=== PATIENT | male | born 1980 | race Caucasian/White ===

== ENCOUNTER 2020-04-27 10:20 | Inpatient (IN) | payer MEDICARE, MEDICAID, SELFPAY ==
[2020-04-27] VITALS (30 sets, daily range): BP systolic 63–127; BP diastolic 36–84; PULSE 77–127; RESP 14–30; TEMP 35.8–37.7; O2SAT 92–100; BMI 27.3
--- NOTE | ~2020-04-27 | CT_ITS ---
EXAMINATION: CT chest abdomen pelvis wo con DATE: 04/27/2020 11:29 INDICATION: Fever. Flank and chest pain. TECHNIQUE: Computed tomography (CT) of the chest, abdomen, and pelvis was performed without intraveno us contrast. Automated exposure control and iterative reconstruction technique were employed. The dos e-length product was 1640.75 mGy-cm. COMPARISON: None FINDINGS: CHEST CT: The lungs demonstrate mild dependent atelectasis. There is a trace left pleural effusion. The heart s ize is normal. No pericardial effusion. ABDOMEN/PELVIS CT: There is diffuse hepatic steatosis. The gallbladder, spleen, pancreas, adrenal glands, and right kidn ey are normal. There are at least 7 stones in left kidney measuring up to 9 mm. There is mild left hy dronephrosis. There is a 12 mm stone in proximal left ureter. There is gas in the bladder lumen that may be from recent instrumentation. There is diverticulosis of the colon without evidence of divertic ulitis. There are no dilated loops of bowel. The appendix is normal. There are no pathologically enla rged lymph nodes. There is no free intraperitoneal fluid. There are bilateral inguinal hernias contai marci fat. There is ankylosis of the hip joints and sacroiliac joints. There are changes of posterior fusion procedure of the spine. IMPRESSION: 1. 12 mm stone in proximal left ureter with mild hydronephrosis. 2. Nonobstructing left kidney stones. Reviewed, dictated and finalized at location A.
--- NOTE | ~2020-04-27 | US_ITS ---
EXAMINATION: US renal BI DATE: 04/27/2020 17:39 INDICATION: Acute renal failure TECHNIQUE: Multiple ultrasound grayscale images of the kidneys were obtained. COMPARISON: CT dated 04/27/2020 FINDINGS: The right kidney measures 13.3 x 4.5 x 6.4 cm. The left kidney measures 13.8 x 5.8 x 7.1 cm. The kidn eys demonstrate normal echogenicity. 2.7 cm cyst at the inferior left kidney. There is no hydronephro sis in either kidney. Linear echogenic structure at the upper pole of the left kidney likely represen ting a recently placed ureteral stent. No stones identified. Punctate echogenic foci with dirty shado wing consistent with previously noted intraluminal gas in the bladder which surrounds a Todd cathete r. IMPRESSION: 1. 2.7 cm left renal cyst. Otherwise normal kidneys without hydronephrosis. 2. Todd catheter and gas within the bladder and likely stent at the upper pole of the left kidney. Reviewed, dictated and finalized at location A.
--- NOTE | ~2020-04-27 | XR_ITS ---
EXAMINATION: XR retrograde pyelo w/stent LT DATE: 04/27/2020 13:57 INDICATION: Obstructing left ureteral stone with fever and flank pain. TECHNIQUE: 10 fluoroscopic images of the abdomen and pelvis were obtained during procedure performed by Dr. Diallo. Radiologist was not present for the imaging or procedure. The amount of fluoroscopy time used during this procedure was 0.3 minutes. COMPARISON: CT dated 04/27/2020 FINDINGS: Images demonstrate a catheter advanced into the left ureter and retrograde contrast injection opacify ing the mildly dilated left renal collecting system. A filling defect is seen at the lower pole calyx likely representing the prior obstructing stone. Subsequent images demonstrate a wire advanced throu gh the catheter into the left renal collecting system. Final images demonstrate the tip of a internal ureteral stent coiled in the left renal pelvis. Incidentally noted thoracolumbar posterior spinal fu aaron with partially visualized vertical floyd and pedicle screw fixation. There is ankylosis across the lumbar spinous processes suggesting ankylosing spondylitis. IMPRESSION: 1. Fluoroscopy utilized during retrograde pyelogram and internal ureteral stent placement. 2. Previously noted obstructing stone at the proximal left ureter likely refluxed into the lower pole calyx of the left kidney. Correlate with procedure note. Reviewed, dictated and finalized at location A. IMPRESSION: 1. Fluoroscopy utilized during retrograde pyelogram and internal ureteral stent placement. 2. Previously noted obstructing stone at the proximal left ureter likely reflux ed into the lower pole calyx of the left kidney. Correlate with procedure note.
--- NOTE | ~2020-04-27 | CT_ITS ---
EXAMINATION: CT abdomen pelvis wo con DATE: 04/29/2020 13:06 INDICATION: Obstructing ureteral stone. TECHNIQUE: Computed tomography (CT) of the abdomen and pelvis was performed without intravenous contr ast. Automated exposure control and iterative reconstruction technique were employed. The dose-length product was 1364.64 mGy-cm. COMPARISON: CT abdomen and pelvis 04/27/2020 FINDINGS: The visualized portions of the lung bases demonstrate mild dependent atelectasis. There are small pleural effusions. The heart size is normal. No pericardial effusion. There is diffuse hepatic steatosis. The gallbladder is normal in size. There is wall thickening of the gallbladder. The splee n, pancreas, adrenal glands, and right kidney are normal. There are multiple stones in left kidney in clusters with the largest stone or cluster of stones measuring 14 mm. There is an 8 mm stone versus pair of stones in proximal left ureter. There is a left internal ureteral stent in expected position. There is a left inguinal hernia containing fat. There is diverticulosis of the colon without evidenc e of diverticulitis. There are no dilated loops of bowel. The appendix is normal. There is mild left para-aortic lymphadenopathy, likely reactive. There is no free intraperitoneal fluid. There is ankylo sis of the hip joints. There are changes of posterior fusion procedure in thoracic and lumbar spine w ith instrumentation. IMPRESSION: 1. Stones in the left kidney and proximal left ureter with left internal ureteral stent in expected p osition. 2. Small pleural effusions. 3. Wall thickening of the gallbladder, which may be seen with interstitial edema, chronic liver disea se, or chronic cholecystitis. 4. Mild left para-aortic lymphadenopathy, likely reactive. Reviewed, dictated and finalized at location A. IMPRESSION: 1. Stones in the left kidney and proximal left ureter with left internal ureter al stent in expected position. 2. Small pleural effusions. 3. Wall thickening of the gallbladder, which may be seen with interstitial chasity a, chronic liver disease, or chronic cholecystitis. 4. Mild left para-aortic lymphadenopathy, likely reactive.
--- NOTE | ~2020-04-27 | XR_ITS ---
EXAMINATION: XR abdomen/kub 1V DATE: 04/29/2020 10:24 INDICATION: Proximal right ureteral stone. TECHNIQUE: A supine view of the abdomen on 2 radiographs was obtained. COMPARISON: CT abdomen and pelvis 04/27/2020 FINDINGS: There are no dilated loops of bowel. There is a left internal ureteral stent in expected po sition. There is an 11 x 4 mm stone in proximal left ureter. There are phleboliths in left pelvis. Th ere are changes of posterior fusion procedure in the spine. IMPRESSION: 1. 11 x 4 mm stone in proximal left ureter with left internal ureteral stent in expected position. Reviewed, dictated and finalized at location A.
--- NOTE | 2020-04-27 10:17 | ED.MALEGU ---
HPI - Male Genitourinary General Chief complaint: Urogenital-Male Stated complaint: Fever History of Present Illness HPI Narrative: 40 year old w/ h/o DM, htn, paraplegia, neurogenic bladder presents to the ED for fever. He has reportedly not been feeling well for a few days. He has had fevers up to 101. He has also had decreased PO intake, decreased urine, and pain in the left side of the chest and abdomen. History limited by patient cooperation. Most history obtained from his home health provider. Related Data Home Medications Medication Instructions Recorded Confirmed Humulin 70/30 U-100 KwikPen 04/27/20 atorvastatin 40 mg PO DAILY 04/27/20 ergocalciferol (vitamin D2) 50,000 mcg PO WEEKLY 04/27/20 [Vitamin D2] fenofibrate micronized 200 mg PO DAILY 04/27/20 ibuprofen 800 mg PO Q6H 04/27/20 icosapent ethyl [Vascepa] 2 g PO BID 04/27/20 lorazepam 0.5 mg PO TID PRN 04/27/20 metformin 500 mg PO BID 04/27/20 omeprazole 20 mg PO DAILY 04/27/20 tamsulosin 0.4 mg PO HS 04/27/20 Allergies Allergy/AdvReac Type Severity Reaction Status Date / Time No Known Allergies Allergy Mild Verified 10/20/07 16:04 Review of Systems Review of Systems: Narrative: ROS limited by patient cooperation Constitutional: Constitutional: Reports fever(s) Cardiovascular: Cardiovascular: Reports chest pain Respiratory: Respiratory: Denies cough, Denies dyspnea and Denies wheezing Gastrointestinal: Gastrointestinal: Reports abdominal pain Genitourinary: Genitourinary: Reports oliguria Musculoskeletal: Musculoskeletal: Reports back pain Neurologic: Denies confusion REPLACED BY [facility] Past Medical History Medical History Anxiety Diabetes DM2 (diabetes mellitus, type 2) Hyperlipidemia Immobility syndrome (paraplegic) Tobacco abuse Surgical History Surgical History Previous back surgery Family History Family History Mother Kidney stone multiple lithotripsies Father Diabetes mellitus Heart disease AICD (automatic cardioverter/defibrillator) present Social History Social History Social History: the patient lives in apartment complex. He has Lexy as a caregiver. She is a Sunday through Sunday. She is the durable power deputy county attorney for healthcare. He does not have any children and has not been . He does smoke about a pack to pack and half a cigarettes a day. Occasional alcohol and uses marijuana. Smoking status: Current every day smoker Alcohol intake: current Substance use: current Substance use type: marijuana Living arrangements: alone Occupation/Education: other Additional gender identity comments: He is disabled Sexual Orientation (if Verbalized by the Patient): Straight or Heterosexual Exam Const: General: no acute distress, alert and ill appearing acutely and chronically HENMT: Head: normal to inspection Chest: Chest palpation & inspection: no tenderness Resp: Effort & Inspection: normal respiratory effort Auscultation: clear to auscultation bilaterally Cardio: Rate: tachycardic Rhythm: regular rhythm GI: GI Palp: Yes Soft to palpation, No Tenderness to palpation present (GI) and No Guarding due to palpation present (GI) : General: Yes CVA tenderness on the left Skin: General skin exam: normal color Neuro: General: patient oriented x3 Speech: normal speech Other: 5/5 strength in BUE Course Vital Signs Vital signs: Vital Signs Temperature 35.8 C L 04/27/20 10:18 Pulse Rate 115 H 04/27/20 10:18 Respiratory Rate 18 04/27/20 10:18 Blood Pressure 100/51 L 04/27/20 10:18 Pulse Oximetry 95 04/27/20 10:18 Temperature 37.0 C 04/27/20 14:05 Pulse Rate 125 H 04/27/20 14:45 Respiratory Rate 16 04/27/20 14:45 Blo
[2020-04-27 10:48] LABS: Basophils Absolute Auto 0.1 K/mm3 (0.0-0.1); Basophils Percent Auto 0.4 % (0.2-1.2); Eosinophils Percent Auto 0.1 % (0-4.4); Hematocrit 51.2 % (42.0-52.0); Hemoglobin 17.5 g/dL (14.0-18.0); Immature Granulocyte Absolute 0.27 K/mm3 (0.00-0.031); Immature Granulocyte Percent A 1.1 % (0-0.5); Lymphocytes Absolute Auto 1.09 K/mm3 (0.9-3.2); Lymphocytes Percent Auto 4.4 % (18.3-44.2); Mean Corpuscular HGB Conc 34.2 g/dl (32-36); Mean Corpuscular Hemoglobin 29.5 pg (26-34); Mean Corpuscular Volume 86.3 fl (80-100); Mean Platelet Volume 9.3 fl (7.4-10.4); Monocytes Absolute Auto 2.2 K/mm3 (0.1-0.6); Monocytes Percent Auto 8.7 % (2.6-8.5); Neutrophils Absolute Auto 21.2 K/mm3 (1.3-6.7); Neutrophils Percent Auto 85.3 % (45.5-73.1); Platelet Count Result 229 k/mm3 (150-375); Red Blood Count 5.93 M/mm3 (4.6-6.20); Red Cell Distribution Width 13.7 % (11.5-14.5); White Blood Count 24.9 K/mm3 (4.5-10.0)
--- NOTE | 2020-04-27 10:55 | PC.NURSE ---
PER QIANA CARTER PT DOES NOT NECESSARILY NEED A CATH TO PROVIDE UA, PT GIVEN URINAL AT THIS TIME, INFORMED OF NEED FOR URINE, PT STATES HE CANNOT GO, I INFORMED PT THAT THE OTHER OPTION IS A STRAIGHT CATH TO WHICH PT STATES YEAH, YOU CAN GO FUCK YOURSELF. TO WHICH I TOLD THE PT THAT THAT RESPONSE WAS NOT AN APPROPRIATE WAY TO ADDRESS STAFF. PT AID AT BEDSIDE LAUGHING AND STATES THAT PT JUST DOESN'T FEEL WELL.
[2020-04-27 10:57] LABS: INR 1.2; Prothrombin Time 14.8 Seconds (11.1-14.7)
[2020-04-27 10:59] LABS: Lactic Acid Reflex 2.3 mmol/L (0.7-2.1)
[2020-04-27 11:08] LABS: Alanine Aminotransferase 27 U/L (4-50); Albumin Level 4.5 g/dL (3.5-5.1); Alkaline Phosphatase 66 U/L (38-126); Anion Gap 19 mmol/L (8-16); Aspartate Amino Transferase 24 U/L (17-59); Bilirubin,Total 1.5 mg/dL (0.2-1.3); Blood Urea Nitrogen 37 mg/dL (9-20); Calcium 9.8 mg/dL (8.4-10.2); Carbon Dioxide 23 mmol/L (22-30); Chloride 99 mmol/L (98-107); Estimated CRCL calculation 23 ml/min; Estimated Glomerular Filt Rate 13; Glucose 151 mg/dL (75-110); Potassium 4.1 mmol/L (3.4-5.0); Sodium 141 mmol/L (137-145)
[2020-04-27] MEDS: SODIUM CHLORIDE 0.9% IV 1,000 ML 999 ML IV CONT ×2 (11:16→12:45)
--- NOTE | 2020-04-27 11:16 | PC.NURSE ---
PT TO CT ON STRETCHER BY INTERNATIONAL TAX MANAGER AT [facility] TIME.
--- NOTE | 2020-04-27 11:17 | PC.NURSE ---
PT STILL REFUSING CATH, UNABLE TO GIVE URINE PRIOR TO CT.
--- NOTE | 2020-04-27 11:36 | PC.NURSE ---
PT ASKED ABOUT STRAIGHT CATH, HE ANSWERED, ERICA NO.
[2020-04-27 11:43] LABS: CRP 36.5 mg/dL (<1.0)
--- NOTE | 2020-04-27 12:37 | PC.NURSE ---
SPOKE WITH AFSHAN IN PREOP ABOUT PT, GAVE REPORT BUT INFORMED THAT PER RN MILA, QIANA CARTER MUST SPEAK WITH PT AND INFORM HIM OF PLAN OF CARE.
--- NOTE | 2020-04-27 12:38 | PC.NURSE ---
PT STILL REFUSING CATH, TOLD QIANA CARTER AIN'T NOBODY SHOVING SHIT IN MY LEONARD.
--- NOTE | 2020-04-27 12:49 | PC.NURSE ---
RAUL AT BEDSIDE WITH RN TO DISCUSS GOING TO OR. PT REFUSING AT THIS TIME, ERP INFORMS PT OF RISKS OF NOT HAVING PROCEDURE OR BEING TREATED. PT STATES AGAIN NO ONE IS SHOVING SHIT UP MY LEONARD, I WANT TO BE ABLE TO USE IT THIS WEEK. ERP WALKS OUT OF ROOM.
--- NOTE | 2020-04-27 13:10 | PC.NURSE ---
pt still refusing cath, unable to void.
--- NOTE | 2020-04-27 13:10 | PC.NURSE ---
per ciarra arguello, special agent in charge carola, and dr. navarro, pt allowed both visitors to room.
--- NOTE | 2020-04-27 13:22 | WPDURCON ---
Assessment and Plan Assessment and plan (1) Left ureteral calculus: Code(s): N20.1 - Calculus of ureter Status: Acute Assessment and Plan: Proceed with cystoscopy left retrograde pyelogram left ureteral stent placement. Definitive treatment of stone at a later point time once acute infection resolves. Have discussed with the patient as well as his bedspring assembler. They are aware that if he is unable to have a stent placed that the next step would be a nephrostomy tube. (2) UTI (urinary tract infection): Code(s): N39.0 - Urinary tract infection, site not specified Status: Acute Assessment and Plan: Will obtain urine culture intraoperatively. Urology Consult Note HPI Date Seen: 04/27/20 Requesting Physician: Isiah Diallo MD Primary Care Provider: Juanita Travis, ODD JOB WORKER Consult Narrative Narrative: Pramod Mckeon is a 40 year old male With degenerative spine disease who is centrally bed ridden. Patient has a medical bedspring assembler as well as an anger management supporter. he had actually seen my partner Dr. Pardo recently for recurring urinary tract infections. He had refused urodynamics and any other significant intervention. He has had chills most recently. He presented to the emergency room. Evaluation in [place] [id number] scan revealing a 12 mm obstructing left proximal ureteral calculus. Patient is very non cooperative and most of the decision making is made through his medical bedspring assembler. I have recommended proceeding with cystoscopy left retrograde left stent placement with definitive treatment of the stone once he recuperates from this ongoing infection. They are aware that if a stent is unable to be placed he will need to be transferred most likely for a nephrostomy tube. Review of Systems Review of Systems: All systems reviewed & are unremarkable except as noted in HPI and below Meds Home Medications and Allergies Home Medications Medication Instructions Recorded Confirmed Type Humulin 70/30 U-100 KwikPen 04/27/20 History atorvastatin 40 mg PO DAILY 04/27/20 History ergocalciferol (vitamin D2) 50,000 mcg PO WEEKLY 04/27/20 History [Vitamin D2] fenofibrate micronized 200 mg PO DAILY 04/27/20 History ibuprofen 800 mg PO Q6H 04/27/20 History icosapent ethyl [Vascepa] 2 g PO BID 04/27/20 History lorazepam 0.5 mg PO TID PRN 04/27/20 History metformin 500 mg PO BID 04/27/20 History omeprazole 20 mg PO DAILY 04/27/20 History tamsulosin 0.4 mg PO HS 04/27/20 History Allergies Allergy/AdvReac Type Severity Reaction Status Date / Time No Known Allergies Allergy Mild Verified 10/20/07 16:04 Vital Signs Vital Signs - 24 hr 04/27/20 10:18 04/27/20 10:51 04/27/20 11:36 Temperature 35.8 C L Pulse Rate 115 H 113 H 114 H Respiratory Rate 18 16 24 H Blood Pressure 100/51 L 111/83 Pulse Oximetry 95 99 100 04/27/20 12:49 Temperature Pulse Rate 114 H Respiratory Rate 21 H Blood Pressure 108/79 Pulse Oximetry 98 Exam Resp: Effort & Inspection: normal respiratory effort Cardio: Rate: tachycardic Results Labs CBC & Chem 7: 04/27/20 10:39 04/27/20 10:39 Labs: Short CBC 04/27/20 Range/Units 10:39 WBC 24.9 H (4.5-10.0) K/mm3 Hgb 17.5 (14.0-18.0) g/dL Hct 51.2 (42.0-52.0) % Plt Count 229 (150-375) k/mm3 [facility] 04/27/20 10:39 Sodium 141 Potassium 4.1 Chloride 99 Carbon Dioxide 23 BUN 37 H Creatinine 4.80 H Glucose 151 H Calcium 9.8 Liver Function 04/27/20 Range/Units 10:39 Total Bilirubin 1.5 H (0.2-1.3) mg/dL AST 24 (17-59) U/L ALT 27 (4-50) U/L Alkaline Phosphatase 66 (38-126) U/L Albumin 4.5 (3.5-5.1) g/dL
[2020-04-27] MEDS: LACTATED RINGERS 1,000 ML 30 ML IV CONT ×3 (13:25→14:59)
--- NOTE | 2020-04-27 13:27 | WPDHPUPDATE1 ---
History and Physical Update Update Date/Time: 04/27/20 13:27 History and Physical has been reviewed, including an updated exam of the patient. There are NO changes in the patient's condition. Risks, benefits, and alternatives have been discussed and questions answered. Patient agrees to proceed with procedure.
--- NOTE | 2020-04-27 13:27 | PM.IMHP ---
H&P: HPI History of Present Illness Date/Time: 04/27/20 13:27 Chief complaint: Fever Narrative: Pramod Mckeon is a 40 year old male Who was brought to the emergency room via EMS. The patient thought that maybe he had a kidney stone in the past but was not really sure. He has caregiver Lexy was here in giving me the information. Lexy stated that they try to bring him in yesterday but he is not able to sit up appropriately and he was unable to bring his chair and he went back home. They called the ambulance today. The patient started to feel ill on Sunday and then Sunday he developed a fever. The patient recently started tamsulosin due to decreased urine output. He is still on his 1st bottle of tamsulosin. Lexy thought that maybe he had a neurogenic bladder. The patient is a functional paraplegic. Lexy explained that his knees and hips and feet became frozen and that he is not able to walk because of it. The patient had rods placed in the back in the past. The patient has a caregiver Lexy that is there Sunday through Sunday. She is acting is the power associate attorney now. The patient is diabetic and his blood sugars have been in the 100s according to October. The patient has severe anxiety. Initially he was refusing treatment. Urology has come in and talk to the patient and he is agreeable to cysto possible stent placement. The patient was found have a white count of 24.9. He would not allow the staff to straight cath him for urinalysis. His pulse rate is in the 1 teens to 120s respirations in the 20s and his blood pressure is low. He meets the criteria for sepsis. His chest abdominal pelvis CT was read as 12 mm stone in proximal left ureter with mild hydronephrosis. Nonobstructing left kidney stone. The patient was started on Rocephin. Patient appears to have rigors. Patient was concerned about having a cysto and having a Todd catheter. His creatinine was noted to be 4.8 with BUN of 37. His lactic was 2.3. Blood sugar was 151. They were not able to get a UA or urine culture due to the fact that the patient would not allow them to straight cath him. Patient is admitted to inpatient on 04/27/2020 is a date of service. Review of Systems Review of Systems: Narrative: Patient's caregiver a per was giving most of the information. All systems reviewed & are unremarkable except as noted in HPI and below Constitutional: Constitutional: Reports as per HPI and Reports no additional constitutional complaints Eyes: Eyes: Reports as per HPI and Reports no additional eye complaints ENT: Reports system reviewed and no additional complaints, except as documented and Reports Normal hearing present Cardiovascular: Cardiovascular: Reports no additional cardiovascular complaints Respiratory: Respiratory: Reports no additional respiratory complaints and Reports no additional respiratory complaints Gastrointestinal: Gastrointestinal: Reports as per HPI and Reports no additional gastrointestinal complaints Musculoskeletal: Musculoskeletal: Reports no additional musculoskeletal complaints Integumentary/Breasts: Skin/Breast: Reports system reviewed and no additional complaints, except as docu and Reports as per HPI Neurologic: Reports system reviewed and no additional complaints, except as documented, Reports as per HPI and Reports Normal hearing present Psychiatric: Psychiatric: Reports no additional psychiatric complaints and Reports as per HPI Endocrine: Endocrine: Reports no additional endocrine complaints Hematologic/Lymphatic: Hematologic/Lymphatic: Reports no additional hematologic/lymphatic complaints Allergic/Immunologic: Allergic/Immunologic: Reports no additional allergic/immunologic complaints [facility] Past Medical History Medical History (Updated 04/27/20 @ 14:00 by Birgit Calzada NP) Anxiety Diabetes DM2 (diabetes mellitus, type 2) Hyperlipidemia Immobility syndrome (paraplegic) Tobacco abuse Surgical History Surgic
--- NOTE | 2020-04-27 13:35 | WPDANESEPPF ---
Anes - Initial Pre Proc Eval Procedure: Operation Date: 04/27/20 13:00 Proposed Procedures p Cystoscopy, Left Retrograde Pyelogram, Left Stent Placement(Left) - Isiah Diallo MD Date/Time: 04/27/20 13:35 Surgeon: Isiah Diallo MD Pre Op Diagnosis: Fever Patient Data Age: 40 Gender: M Height: 6 ft Weight: 101.1 kg Last Vital Signs Temp 35.8 C L 04/27/20 10:18 Pulse 127 H 04/27/20 13:24 Resp 24 H 04/27/20 13:24 BP 122/78 04/27/20 13:24 Pulse Ox 97 04/27/20 13:24 Allergies Allergy/AdvReac Type Severity Reaction Status Date / Time No Known Allergies Allergy Mild Verified 10/20/07 16:04 Home Medications Medication Instructions Recorded Confirmed Type Humulin 70/30 U-100 KwikPen 04/27/20 History atorvastatin 40 mg PO DAILY 04/27/20 History ergocalciferol (vitamin D2) 50,000 mcg PO WEEKLY 04/27/20 History [Vitamin D2] fenofibrate micronized 200 mg PO DAILY 04/27/20 History ibuprofen 800 mg PO Q6H 04/27/20 History icosapent ethyl [Vascepa] 2 g PO BID 04/27/20 History lorazepam 0.5 mg PO TID PRN 04/27/20 History metformin 500 mg PO BID 04/27/20 History omeprazole 20 mg PO DAILY 04/27/20 History tamsulosin 0.4 mg PO HS 04/27/20 History Laboratory Tests 04/27/20 04/27/20 04/27/20 10:39 10:39 10:39 WBC 24.9 K/mm3 H K/mm3 (4.5-10.0) RBC 5.93 M/mm3 M/mm3 (4.6-6.20) Hgb 17.5 g/dL g/dL (14.0-18.0) Hct 51.2 % % (42.0-52.0) MCV 86.3 fl fl (80-100) MCH 29.5 pg pg (26-34) MCHC 34.2 g/dl g/dl (32-36) RDW 13.7 % % (11.5-14.5) Plt Count 229 k/mm3 k/mm3 (150-375) MPV 9.3 fl fl (7.4-10.4) Immature Gran % (Auto) 1.1 % H % (0-0.5) Neut % (Auto) 85.3 % H % (45.5-73.1) Lymph % (Auto) 4.4 % L % (18.3-44.2) Sampson % (Auto) 8.7 % H % (2.6-8.5) Eos % (Auto) 0.1 % % (0-4.4) Baso % (Auto) 0.4 % % (0.2-1.2) Lymph # (Auto) 1.09 K/mm3 K/mm3 (0.9-3.2) Sampson # (Auto) 2.2 K/mm3 H K/mm3 (0.1-0.6) Eos # (Auto) 0.0 K/mm3 K/mm3 (0-0.3) Baso # (Auto) 0.1 K/mm3 K/mm3 (0.0-0.1) Abs Immat Gran (auto) 0.27 K/mm3 H K/mm3 (0.00-0.031) Absolute Neuts (auto) 21.2 K/mm3 H K/mm3 (1.3-6.7) Absolute Nucleated RBC 0.0 K/mm3 K/mm3 (0.0-0.012) Nucleated RBC % 0.0 % % (0.0-0.2) PT 14.8 Seconds H Seconds (11.1-14.7) INR 1.2 APTT 32.0 SECONDS SECONDS (22.3-36.8) Sodium 141 mmol/L mmol/L (137-145) Potassium 4.1 mmol/L mmol/L (3.4-5.0) Chloride 99 mmol/L mmol/L (98-107) Carbon Dioxide 23 mmol/L mmol/L (22-30) Anion Gap 19 mmol/L H mmol/L (8-16) BUN 37 mg/dL H mg/dL (9-20) Creatinine 4.80 mg/dL H mg/dL (0.7-1.3) Estim Creat Clear Calc 23 ml/min ml/min Estimated GFR 13 L (59 - ) Glucose 151 mg/dL H mg/dL (75-110) Lactic Acid Calcium 9.8 mg/dL mg/dL (8.4-10.2) Total Bilirubin 1.5 mg/dL H mg/dL (0.2-1.3) AST 24 U/L U/L (17-59) ALT 27 U/L U/L (4-50) Alkaline Phosphatase 66 U/L U/L (38-126) C-Reactive Protein 36.5 mg/dL H mg/dL (<1.0) Total Protein 8.0 g/dL g/dL (6.3-8.2) Albumin 4.5 g/dL g/dL (3.5-5.1) 04/27/20 10:39 WBC RBC Hgb Hct MCV MCH MCHC RDW Plt Count MPV Immature Gran % (Auto) Neut % (Auto) Lymph % (Auto) Sampson % (Auto) Eos % (Auto) Baso % (Auto) Lymph # (Auto) Sampson # (Auto) Eos # (Auto) Baso # (Auto) Abs Immat Gran (auto) Absolute Neuts (auto) Absolute Nucleated RBC Nucleated RBC % PT INR APTT
[2020-04-27 13:44] LABS: Reflex Lactic Acid Yes or No Add Lactic
[2020-04-27] MEDS: LIDOCAINE HCL 2% GEL UROJET 10 ML PKG MUCOUS MEM (13:48)
--- NOTE | 2020-04-27 13:57 | P.OP_ITS ---
Procedure Note - Detailed Date of procedure: 04/27/20 Pre-op diagnosis: Fever Left ureteral obstructing stone 12 mm Post-op diagnosis: same Procedure performed: cystoscopy, left retrograde pyelogram left stent placement 6 Australian contour Description of procedure: patient is taken to the operative suite and correctly identified. Patient is extremely contracted and thus is unable to be positioned in any sort of dorsal lithotomy position. We were able to prep and drape of in a sterile fashion. Twenty-two Australian scope was inserted into the bladder. He has quite a bit of bullous edema around the ureteral orifices and trigone area. We were able to find the left ureteral orifice and placed a guidewire in. We then placed a ureteral catheter over the guidewire up to the renal pelvis. Pyelogram was performed for confirmation of stent placement. A 6 Australian contour stent was then placed with the proximal end coiled in the renal pelvis and the distal end in the bladder. There was some purulence coming from the ureteral orifice. I was never really able to visualize the stone fluoroscopically at this time. Sixteen Australian Todd was then placed in the bladder inflated with 10 cc of sterile water. Patient will be taken to the ICU postoperatively for close monitoring. He will require a follow-up CT once he is hemodynamically stable for visualization of where the stone is located. I have discussed this with his inspector materials and processes. Given a lot of his comorbid conditions and severe contractility this is a patient that may need to be better addressed over at [facility] in the future. Anesthesia: GLMA and MAC Surgeon: Isiah Diallo MD Drains: Yes Packing: No Pathology: none sent Complications: No immediate complications Condition: stable Disposition: PACU
[2020-04-27 14:07] LABS: Glucose Point of Care 103 (65-105)
[2020-04-27 14:17] LABS: Add Urine Microscopic? YES; Appearance Urine Turbid (Clear); Bacteria Urine 2+ /hpf; Bilirubin Urine Negative (Negative); Blood Urine 3+ (Negative); Color Urine Yellow (Yellow); Glucose Urine UA Negative (Negative); Ketones Urine Negative (Negative); Leukocyte Esterase Ur 2+ LEU/UL (Negative); Mucus Urine Rare /lpf; Nitrate Urine Negative (Negative); Protein Urine 2+ mg/dL (Negative); RBC Urine >75 /hpf (0-2); Specific Grav Ur 1.011 (1.001-1.035); Squamous Epithelial Cell Urine Many /hpf (Few); Urobilinogen Urine Negative mg/dL (<2.0); WBC Clumps Urine Present /HPF; WBC Urine >75 /hpf
--- NOTE | 2020-04-27 14:37 | SUR.PHASEI ---
[id number] sbar faxed floor notified
--- NOTE | 2020-04-27 15:44 | PC.NURSE ---
This patient, Pramod Mckeon, was admitted to Intensive Care Unit-8. Patient/family oriented to hospital policies and general routines including ID bracelet, bed and alarms, visiting hours, pain management, procedures, bathroom and other care routines, personal items, smoking policy, room service/diet, and visiting hours. Valuables list has been completed. Information on how to activate the Rapid Response Team has been discussed. Patient/Family are encouraged to report perceived risks to care and to ask questions if they do not understand what they are told or what they should do.
--- NOTE | 2020-04-27 16:14 | SUR.PHASEI ---
1430 pt arousable and answers questions. pt is very uncomfortable on stretcher and wants to get upstairs and into a bed. pt using vuolgar language with other patients in recovery, told to watch his language and spoke with more vulgar language. 1510 pt unwilling to get turn off his backside due to he just wants to get upstairs to room. rep[ort called to gisell auricular acupuncturist. told about pt being hypotensive. dr chavez called down to verify pt being hypotensive, he wants a central line placed and a vasoconstrictor started. gin, nurse manager image notified, she called dr hurd. dr hurd came to pacu and ordered phenylephrine drip 25mcg/min to be started to keep map>50. pheneylepherine ordered waited on pharmacy to send. 1520 pt spoke with beny(caregiver) on pacu phone. pt still upset and angry and using vulgar language at times. 1530 phenylepherine started. pt transferred to icu via stretcher on monitor.
[2020-04-27 16:16] LABS: Glucose Point of Care 78 (65-105)
[2020-04-27] MEDS: LACTATED RINGERS 1,000 ML 125 ML IV CONT ×2 (16:18→22:40)
[2020-04-27 16:48] LABS: Lactic Acid 2.6 mmol/L (0.7-2.1)
[2020-04-27 23:59] LABS: Glucose Point of Care 109 (65-105)
[2020-04-28] VITALS (21 sets, daily range): BP systolic 102–143; BP diastolic 53–85; PULSE 46–87; RESP 14–19; TEMP 36.2–37.8; O2SAT 92–96
[2020-04-28] MEDS: LACTATED RINGERS 1,000 ML 125 ML IV CONT ×2 (04:59→17:24)
[2020-04-28 05:26] LABS: Hematocrit 45.7 % (42.0-52.0); Hemoglobin 15.2 g/dL (14.0-18.0); Mean Corpuscular HGB Conc 33.3 g/dl (32-36); Mean Corpuscular Hemoglobin 29.3 pg (26-34); Mean Corpuscular Volume 88.2 fl (80-100); Mean Platelet Volume 9.8 fl (7.4-10.4); Platelet Count Result 235 k/mm3 (150-375); Red Blood Count 5.18 M/mm3 (4.6-6.20); White Blood Count 30.8 K/mm3 (4.5-10.0)
[2020-04-28 05:36] LABS: Hemoglobin A1C 6.2 % (<5.7)
[2020-04-28 05:46] LABS: Lactic Acid Reflex 1.7 mmol/L (0.7-2.1)
[2020-04-28 05:49] LABS: Alanine Aminotransferase 42 U/L (4-50); Albumin Level 3.6 g/dL (3.5-5.1); Alkaline Phosphatase 60 U/L (38-126); Anion Gap 18 mmol/L (8-16); Aspartate Amino Transferase 55 U/L (17-59); Bilirubin,Total 1.2 mg/dL (0.2-1.3); Blood Urea Nitrogen 39 mg/dL (9-20); CRP > 9.0 mg/dL (<1.0); Calcium 8.5 mg/dL (8.4-10.2); Carbon Dioxide 18 mmol/L (22-30); Chloride 104 mmol/L (98-107); Estimated CRCL calculation 35 ml/min; Estimated Glomerular Filt Rate 21; Glucose 140 mg/dL (75-110); Magnesium 1.5 mg/dL (1.6-2.3); Potassium 4.3 mmol/L (3.4-5.0); Sodium 140 mmol/L (137-145)
[2020-04-28 06:05] LABS: Band Neutrophils Percent 10 % (0-6); Monocytes Absolute Manual 2.15 K/mm3 (0.1-0.90); Monocytes Percent Manual 7 % (3-9); Neutrophils Absolute Manual 28.33 K/mm3 (1.3-6.7); Neutrophils Percent Manual 82 % (46-73); Total Cells Counted 100
[2020-04-28 06:06] LABS: Platelet Estimate Adequate (Adequate)
[2020-04-28 06:14] LABS: Thyroid Stimulating Hormone Reflex 0.448 uIU/mL (0.465-4.68)
[2020-04-28 07:13] LABS: Free T4 Free Thyroxine Reflex 2.05 ng/dL (0.78-2.19)
[2020-04-28] MEDS: MAGNESIUM SULF 2 GM/WATER 50ML 2 GM/50 ML BAG IVPB ×2 (09:54→15:49)
--- NOTE | 2020-04-28 09:59 | PCDIET ---
pt growled at ICU MD when MD took the cover of pts face. When RN was administering medications he refused the PO pills by stating Not Now! , but agreed to IV by stating Do whatever you need to and get out!
[2020-04-28] MEDS: FENOFIBRATE 160 MG TABLET PO (10:37)
[2020-04-28] MEDS: ATORVASTATIN 40 MG TABLET PO (10:37)
[2020-04-28] MEDS: SODIUM CHLORIDE 0.9% IV 500 ML IV CONT (11:33)
--- NOTE | 2020-04-28 12:13 | WPDUROPN2 ---
Progress Note: A&P Assessment and Plan (1) Sepsis: Code(s): A41.9 - Sepsis, unspecified organism Status: Acute Assessment and Plan: Continue IV antibiotics. Tailor to culture results. (2) Calculus of proximal left ureter: Code(s): N20.1 - Calculus of ureter Status: Acute Assessment and Plan: Left ureteral stent in place, 12mm proximal stone will need to be addressed at [place] per DR. Diallo. (3) Acute renal failure: Code(s): N17.9 - Acute kidney failure, unspecified Status: Acute Assessment and Plan: Improving since stent was placed, will continue to monitor creatinine until it returns to baseline. Subjective Subjective Date/Time Seen: 04/28/20 12:13 POD #1 Cystoscopy, left retrogade pyelogram, left stent placement. Patient is not communicating and willingly had his gown over his face when I went to visit him. He is able to speak but only would give yes and no answers. Review of Systems Cardiovascular: Cardiovascular: Denies chest pain Respiratory: Respiratory: Reports no additional respiratory complaints Gastrointestinal: Gastrointestinal: Denies abdominal pain, Denies nausea and Denies vomiting Genitourinary: Genitourinary: Reports hematuria Exam Resp: Effort & Inspection: normal respiratory effort Cardio: Rate: regular rate GI: GI Palp: Yes Soft to palpation and No Tenderness to palpation present (GI) Urinary Catheter: Urinary Catheter: patent and draining and urine dark Extrem: General: no edema Objective Data Vital Signs Vital Signs: Vital Signs - 24 hr 04/27/20 12:49 04/27/20 13:24 04/27/20 14:05 Temperature 98.6 F Pulse Rate 114 H 127 H 110 H Respiratory Rate 21 H 24 H 18 Blood Pressure 108/79 122/78 89/50 L Pulse Oximetry 98 97 100 04/27/20 14:15 04/27/20 14:25 04/27/20 14:34 Temperature Pulse Rate 112 H 117 H 121 H Respiratory Rate 20 22 H 14 Blood Pressure 67/39 L 65/47 L 67/43 L Pulse Oximetry 98 93 92 04/27/20 14:40 04/27/20 14:45 04/27/20 15:03 Temperature Pulse Rate 121 H 125 H 119 H Respiratory Rate 14 16 20 Blood Pressure 73/36 L 63/48 L 74/39 L Pulse Oximetry 92 92 93 09/29/20 15:15 04/27/20 15:30 04/27/20 15:35 Temperature Pulse Rate 125 H 117 H 120 H Respiratory Rate 24 H 20 Blood Pressure 84/40 L 70/39 L 70/42 L Pulse Oximetry 94 94 04/27/20 16:00 04/27/20 16:15 04/27/20 16:30 Temperature 99.9 F H Pulse Rate 113 H 114 H 115 H Respiratory Rate 30 H 27 H 25 H Blood Pressure 79/46 L 77/46 L 73/48 L Pulse Oximetry 93 94 94 04/27/20 16:45 04/27/20 17:00 04/27/20 17:15 Temperature Pulse Rate 108 H 111 H 113 H Respiratory Rate 24 H 26 H 27 H Blood Pressure 70/46 L 74/40 L 88/54 L Pulse Oximetry 94 95 95 04/27/20 17:30 04/27/20 17:45 04/27/20 18:00 Temperature Pulse Rate 111 H 109 H 109 H Respiratory Rate 21 H 18 25 H Blood Pressure 85/44 L 92/53 L 88/56 L Pulse Oximetry 95 97 96 04/27/20 18:15 04/27/20 18:30 04/27/20 18:58 Temperature Pulse Rate 108 H 108 H 112 H Respiratory Rate 25 H 26 H Blood Pressure 90/56 L 85/47 L 85/47 L Pulse Oximetry 95 94 04/27/20 19:19 04/27/20 20:00 04/27/20 22:00 Temperature 98.3 F Pulse Rate 106 H 99 77 Respiratory Rate 18 14 Blood Pressure 89/46 L 100/59 L 127/84 Pulse Oximetry 100 94 04/28/20 00:00 04/28/20 01:33 04/28/20 02:00 Temperature 99.1 F Pulse Rate 71 56 L 53 L Respiratory Rate 14 14 Blood Pressure 124/83 119/74 124/76 Pulse Oximetry 94 94 04/28/20 03:02 04/28/20 03:13 04/28/20 04:00 Temperature 98.5 F Pulse Rate 48 L 46 L 51 L Respiratory Rate 14 Blood Pressure 129/73 139/73 133/78 Pulse Oximetry 95 04/28/20 05:03 04/28/20 05:38 04/28/20 05:55 Temperature Pulse Rate 47 L 52 L 57 L Respiratory Rate 14 Blood Pressure 143/85 H 134/81 128/74 Pulse Oximetry 96 04/28/20 06:26 04/28/20 08:00 04/28/20 08:30 Temperature Pulse Rate 54 L 65 81 Respirat
[2020-04-28 12:27] LABS: Total Triiodothyronine (T3) 0.44 NG/ML (0.97-1.69)
--- NOTE | 2020-04-28 12:41 | WPDCNINT ---
Assessment and Plan Assessment and plan (1) Septic shock: Code(s): A41.9 - Sepsis, unspecified organism; R65.21 - Severe sepsis with septic shock Status: Acute Assessment and Plan: patient presented with fevers, elevated WBC count, left ureteral calculus, elevated CRP, acute renal failure, lactic acidosis - patient adequately fluid-resuscitated, - will give additional 500 mL IV bolus this morning - creatinine trending down, urine output better - lactic levels have normalized, CRP trending down - blood cultures growing Gram-positive bacilli and gram-positive cocci, identification and sensitivities pending - urine cultures pending - continue ceftriaxone, will add vancomycin (2) Acute renal failure: Code(s): N17.9 - Acute kidney failure, unspecified Status: Acute Assessment and Plan: acute renal failure likely related to septic shock, hypotension, hypovolemia, ureteral calculus left side - patient adequate fluid resuscitation - continue maintenance IV fluids - urine output has improved, creatinine trending down - lactic acid normalized - continue monitoring urine output, renal function electrolytes (3) Calculus of proximal left ureter: Code(s): N20.1 - Calculus of ureter Status: Acute Assessment and Plan: status post cystoscopy, left retrograde pyelogram, left stent placement. - during the procedure the surgeon did see purulent drainage from the ureteral orifice (4) UTI (urinary tract infection): Code(s): N39.0 - Urinary tract infection, site not specified Status: Acute Assessment and Plan: urinary tract infection likely related to ureteral calculus - continue ceftriaxone, urine cultures are pending - will continue to follow (5) DM2 (diabetes mellitus, type 2): Code(s): E11.9 - Type 2 diabetes mellitus without complications Status: Chronic Assessment and Plan: continue sliding scale insulin and Accu-Cheks - hemoglobin A1c 6.2 this admission Additional Plan code status: Full code critical care time spent: 43 minutes Due to a high probability of clinically significant, life threatening deterioration, the patient required my highest level of preparedness to intervene emergently and I personally spent this critical care time directly and personally managing the patient. This critical care time included obtaining a history; examining the patient; pulse oximetry; ordering and review of studies; arranging urgent treatment with development of a management plan; evaluation of patient's response to treatment; frequent reassessment; and discussions with other providers. It was exclusive of separately billable procedures and treating other patients and teaching time. Please see Assessment and Plan section and the rest of the note for further information on patient assessment and treatment [facility] Consult Note Consult date: 04/28/20 Time Seen: 07:01 Reason for consult: Septic shock, left ureteral calculus, UTI, HPI: Pramod Mckeon is a 40 year old male with past medical history of anxiety, diabetes, hyperlipidemia, immobility syndrome( paraplegic), neurogenic bladder, tobacco abuse presented the ED on 04/27 via EMS with complains of fevers a not been feeling well for few days. Patient's fever was up to 101.0F. patient also complained of decreased p.o. intake, decreased urine output and left-sided abdominal pain. Patient has been seen urologist Dr. Pardo for recurrent UTIs. In the ED patient had a WBC count of 28,000, CT scan revealed 12 mm obstructing left proximal ureteral calculus. Patient underwent cystoscopy with left retrograde pyelogram with left stent placement. Purulent discharge was seen coming from the ureteral orifice. Patient was hypotensive in OR and PACU and was been given IV pushes of phenylephrine. Patient was started on John-Synephrine hep peripheral access in the PACU and transferred to the ICU for further management. Cent
--- NOTE | 2020-04-28 12:52 | WPDANESPN ---
Anes - Prog Note Post-Op Date/Time: 04/28/20 12:52 Cardiovascular status: normal Respiratory status: normal Airway patency: baseline Mental status: baseline Post-Op hydration status: normal Vital Signs: Last Vital Signs Temp 36.9 C 04/28/20 04:00 Pulse 74 04/28/20 10:00 Resp 19 04/28/20 10:00 BP 105/64 04/28/20 10:00 Pulse Ox 93 04/28/20 10:00 Pain Score (VAS): 0/10. Patient resting in bed at time of assessment, appears comfortable. RN at bedside, no concerns at time of assessment. RN states vasopressors had been discontinued. RN states patient now Med/Tele status. I/O: Intake & Output 04/27/20 04/28/20 04/28/20 23:59 07:59 15:59 Intake Total 1000 1255 Output Total 600 1200 Balance 400 55 Laboratory Tests 04/28/20 05:01 04/28/20 05:01 04/27/20 04/27/20 04/27/20 13:43 14:04 16:11 WBC RBC Hgb Hct MCV MCH MCHC RDW Plt Count MPV Immature Gran % (Auto) Neut % (Auto) Lymph % (Auto) [place] % (Auto) Eos % (Auto) Baso % (Auto) Lymph # (Auto) [place] # (Auto) Eos # (Auto) Baso # (Auto) Abs Immat Gran (auto) Absolute Neuts (auto) Absolute Nucleated RBC Total Counted Neutrophils % (Manual) Band Neutrophils % Lymphocytes % (Manual) Monocytes % (Manual) Nucleated RBC % Abs Neuts (Manual) Abs Lymphs (Manual) Abs Monocytes (Manual) Platelet Estimate Sodium Potassium Chloride Carbon Dioxide Anion Gap BUN Creatinine Estim Creat Clear Calc Estimated GFR Glucose POC Capillary Glucose 103 78 Hemoglobin A1c Lactic Acid Calcium Magnesium Total Bilirubin AST ALT Alkaline Phosphatase C-Reactive Protein Total Protein Albumin TSH (Reflex) Free T4 Total T3 Urine Color Yellow Urine Appearance Turbid H Urine pH 6.0 Ur Specific [place] 1.011 Urine Protein 2+ H Urine Glucose (UA) Negative Urine Ketones Negative Ur Blood (Man) 3+ H Urine Nitrate Negative Urine Bilirubin Negative Urine Urobilinogen Negative Leukocyte Esterase Rfl 2+ H Urine RBC >75 H Urine WBC >75 H Urine WBC Clumps Present H Ur Squamous Epith Cells Many H Urine Bacteria 2+ H Urine Mucus Rare 04/27/20 04/27/20 04/28/20 16:30 23:57 05:01 WBC 30.8 H RBC 5.18 Hgb 15.2 Hct 45.7 MCV 88.2 MCH 29.3 MCHC 33.3 RDW 14.0 Plt Count 235 MPV 9.8 Immature Gran % (Auto) Not Reportable Neut % (Auto) Not Reportable Lymph % (Auto) Not Reportable [place] % (Auto) Not Reportable Eos % (Auto) Not Reportable Baso % (Auto) Not Reportable Lymph # (Auto) Not Reportable [place] # (Auto) Not Reportable Eos # (Auto) Not Reportable Baso # (Auto) Not Reportable Abs Immat Gran (auto) Not Reportable Absolute Neuts (auto) Not Reportable Absolute Nucleated RBC Not Reportable Total Counted 100 Neutrophils % (Manual) 82 H Band Neutrophils % 10 H Lymphocytes % (Manual) 1.0 L Monocytes % (Manual) 7 Nucleated RBC % Not Reportable Abs Neuts (Manual) 28.33 H Abs Lymphs (Manual) 0.30 L Abs Monocytes (Manual) 2.15 H Platelet Estimate Adequate Sodium Potassium Chloride Carbon Dioxide Anion Gap BUN Creatinine Estim Creat Clear Calc Estimated GFR Glucose POC Capillary Glucose 109 Hemoglobin A1c Lactic Acid 2.6 H Calcium Magnesium Total Bilirubin AST ALT Alkaline Phosphatase C-Reactive Protein Total Protein Albumin TSH (Reflex) Free T4 Total T3 Urine Color Urine Appearance Urine pH Ur Specific [place] Urine Protein Urine Glucose (UA) Urine Ketones Ur Blood (Man) Urine Nitrate Urine Bilirubin Urine Urobilinogen Leukocyte Esterase Rfl Urine RBC Urine WBC Urine WBC Clumps Ur Squamous
--- NOTE | 2020-04-28 15:16 | PC.NURSE ---
Called Dr Larry for 5 beat run of V-tach. Pt was asymptomatic. New orders received for 2gm magnesium IV and 400mg daily po of magnesium.Also wants labs done for AM. CBC,CMP,MAg.
--- NOTE | 2020-04-28 18:05 | PC.NURSE ---
Pt arrived to floor 1200. Pt in no distress. Resting comfortably at this time.
[2020-04-28 18:14] LABS: Glucose Point of Care 208 (65-105)
[2020-04-28] MEDS: INSULIN ASPART (*BKC) 100 UNITS/ML SUB-Q (18:25)
[2020-04-28] MEDS: ERGOCALCIFEROL 50,000 UNIT CAPSULE 50000 UNITS PO (22:24)
[2020-04-28] MEDS: ACETAMINOPHEN 500 MG TABLET 1000 MG PO (22:41)
[2020-04-29] VITALS (8 sets, daily range): BP systolic 108; BP diastolic 51; PULSE 42–92; RESP 18; TEMP 36.7–37.2; O2SAT 97
[2020-04-29 00:09] LABS: Glucose Point of Care 155 (65-105)
[2020-04-29] MEDS: LACTATED RINGERS 1,000 ML 125 ML IV CONT ×2 (01:39→10:58)
[2020-04-29] MEDS: MAGNESIUM OXIDE 400 MG TABLET PO (08:39)
[2020-04-29] MEDS: FENOFIBRATE 160 MG TABLET PO (08:39)
[2020-04-29] MEDS: ATORVASTATIN 40 MG TABLET PO (08:39)
[2020-04-29 08:45] LABS: Glucose Point of Care 191 (65-105)
--- NOTE | 2020-04-29 08:50 | WPDUROPN2 ---
Progress Note: A&P Assessment and Plan (1) Acute renal failure: Code(s): N17.9 - Acute kidney failure, unspecified Status: Acute Assessment and Plan: Creatinine improved today from 4.80 to 3.20, will continue to monitor. (2) Calculus of proximal left ureter: Code(s): N20.1 - Calculus of ureter Status: Acute Assessment and Plan: Will plan to get a KUB to plan for ESWL potentially as an outpatient once infection is cleared. (3) Sepsis: Code(s): A41.9 - Sepsis, unspecified organism Status: Acute Assessment and Plan: Continue IV antibiotics, urine culture grew Klebsiella which is sensitive to Ceftriaxone. Subjective Subjective Date/Time Seen: 04/29/20 08:50 POD #2 Cystoscopy, left retrogade pyelogram, left stent placement. Patient is not communicating He is able to speak but only would give yes and no answers. Review of Systems Cardiovascular: Cardiovascular: Denies chest pain Respiratory: Respiratory: Reports no additional respiratory complaints Gastrointestinal: Gastrointestinal: Denies abdominal pain, Denies nausea and Denies vomiting Genitourinary: Genitourinary: Denies hematuria and Denies flank pain Exam Resp: Effort & Inspection: normal respiratory effort Cardio: Rate: bradycardic GI: GI Palp: Yes Soft to palpation and No Tenderness to palpation present (GI) : General: Yes no CVA tenderness Extrem: General: no edema Objective Data Vital Signs Vital Signs: Vital Signs - 24 hr 04/28/20 09:00 04/28/20 09:30 04/28/20 10:00 Temperature Pulse Rate 76 77 74 Respiratory Rate 18 16 19 Blood Pressure 112/69 113/66 105/64 Pulse Oximetry 95 96 93 04/28/20 12:00 04/28/20 14:00 04/28/20 16:00 Temperature 97.9 F 97.1 F L Pulse Rate 83 81 81 Respiratory Rate 16 18 Blood Pressure 102/64 128/56 L Pulse Oximetry 92 93 04/28/20 20:00 04/28/20 22:00 04/28/20 22:41 Temperature 100.1 F H 100.1 F H Pulse Rate 83 87 Respiratory Rate 18 Blood Pressure 116/53 L Pulse Oximetry 92 04/29/20 00:00 04/29/20 01:41 04/29/20 04:00 Temperature 98.9 F Pulse Rate 66 50 L Respiratory Rate Blood Pressure Pulse Oximetry Intake/Output Intake/Output: Intake & Output 04/26/20 04/27/20 04/28/20 04/29/20 23:59 23:59 23:59 23:59 Intake Total 4650 3885 1520 Output Total 665 2150 900 Balance 3985 2669 170 Meds/Results Medications: Active Medications Generic Name Dose Route Start Last Admin Trade Name Freq PRN Reason Stop Dose Admin Acetaminophen 1,000 mg 04/28/20 22:34 04/28/20 22:41 Tylenol Tablet PO 1,000 mg Q4H PRN Administration Fever Atorvastatin Calcium 40 mg 04/28/20 09:00 04/29/20 08:39 Lipitor PO 40 mg DAILY CHON Administration Dextrose 12.5 gm 04/27/20 13:56 Dextrose 50% Syringe IV PUSH PRN PRN Hypoglycemia Protocol Ergocalciferol 50,000 unit 04/28/20 21:00 04/28/20 22:24 Drisdol PO 50,000 unit We@2100 CHON Administration Fenofibrate 160 mg 04/28/20 09:00 04/29/20 08:39 Fenofibrate PO 05/28/20 09:01 160 mg DAILY CHON Administration Glucagon 1 mg 04/27/20 13:56 Glucagon For Inj IM PRN PRN Hypoglycemia Protocol Glucose 15 gm 04/27/20 13:56 Glutose 15 PO PRN PRN Hypoglycemia Protocol Hydromorphone HCl 1 mg 04/27/20 13:36 Dilaudid Inj IV PUSH Q5M PRN Pain Lactated Ringer's 1,000 mls @ 125 mls/hr 04/27/20 13:10 04/29/20 05:49 Lr - Lactated Ringers Iv IV CONT 125 mls/hr .Q8H CHON Infusion Ceftriaxone Sodium/Dextrose 1 gm in 50 mls @ 100 mls/hr 04/28/20 12:00 04/28/20 13:29 Rocephin 1 Gm/D5w 50 Ml IVPB 100 mls/hr NOON CHON Administration Dextrose 1,000 mls @ 100 mls/hr 04/27/20 13:56 Dextrose 5% 1,000 Ml IVPB PRN PRN Hypoglycemia Protocol Vancomycin HCl 1,500 mg in 500 mls @ 333.333 mls/hr 04/28/20 11:00 04/28/20 13:05 V
[2020-04-29 09:21] LABS: Hematocrit 39.6 % (42.0-52.0); Hemoglobin 13.4 g/dL (14.0-18.0); Mean Corpuscular HGB Conc 33.8 g/dl (32-36); Mean Corpuscular Hemoglobin 29.5 pg (26-34); Mean Platelet Volume 10.1 fl (7.4-10.4); Platelet Count Result 157 k/mm3 (150-375); Red Blood Count 4.55 M/mm3 (4.6-6.20); Red Cell Distribution Width 13.6 % (11.5-14.5); White Blood Count 12.1 K/mm3 (4.5-10.0)
[2020-04-29 09:36] LABS: Alanine Aminotransferase 47 U/L (4-50); Albumin Level 3.2 g/dL (3.5-5.1); Alkaline Phosphatase 58 U/L (38-126); Anion Gap 12 mmol/L (8-16); Aspartate Amino Transferase 51 U/L (17-59); Bilirubin,Total 0.7 mg/dL (0.2-1.3); Blood Urea Nitrogen 37 mg/dL (9-20); Calcium 8.2 mg/dL (8.4-10.2); Carbon Dioxide 24 mmol/L (22-30); Chloride 105 mmol/L (98-107); Estimated CRCL calculation 78 ml/min; Estimated Glomerular Filt Rate 56; Glucose 209 mg/dL (75-110); Magnesium 2.5 mg/dL (1.6-2.3); Potassium 3.4 mmol/L (3.4-5.0); Sodium 141 mmol/L (137-145)
--- NOTE | 2020-04-29 11:47 | ECG_ITS ---
Measurements Intervals [place] Rate: 42 P: 31 RI: 148 QRS: 44 QRSD: 129 T: 57 QT: 532 QTc: 449 Interpretive Statements SINUS BRADYCARDIA INTRAVENTRICULAR CONDUCTION DELAY BASELINE ARTIFACT- I, II, AVR, V1 ABNORMAL ECG Electronically Signed On 04-29-2020 12:33:25 CDT by Joel García D.O.
[2020-04-29] MEDS: INSULIN ASPART (*BKC) 100 UNITS/ML SUB-Q ×2 (12:06→17:59)
[2020-04-29 12:41] LABS: Glucose Point of Care 335 (65-105)
--- NOTE | 2020-04-29 13:51 | PC.NURSE ---
notified Dr. renteria of change in results of blood culture.
[2020-04-29] MEDS: POTASSIUM CHLORIDE 20 MEQ TABLET 40 MEQ PO (14:29)
--- NOTE | 2020-04-29 14:54 | PM.IMPN ---
Progress Note: A&P Assessment and Plan (1) Sepsis: Code(s): A41.9 - Sepsis, unspecified organism Status: Acute Assessment and Plan: blood cultures and urine cultures are pending. The patient was started on Rocephin in the emergency room. Patient was refusing to be straight cath in the emergency room. See UTI (2) UTI (urinary tract infection): Code(s): N39.0 - Urinary tract infection, site not specified Status: Acute Assessment and Plan: Suspect that is a UTI from his kidney stone. he has leukocytosis with his white count being 24.9 and lactic 2.3. Repeat lactic. CRP 36.5. Patient's heart rate was elevated his blood pressure was low. He meets criteria for sepsis. 04/29/20 14:54 patient is a 40-year-old male bed-bound with paraplegia and chronic urinary retention he self caths himself he presented emergency department with a fever of 101, elevated white count of 28,[address] scan of abdomen which showed 12 mm stone in proximal left ureter with mild hydronephrosis patient was seen by urology and was taken to OR and had a cystoscopy with left retrograde pyelogram with left stent placement. patient urine culture is growing Klebsiella pneumonia sensitive to Rocephin will continue, patient blood cultures also growing Klebsiella pneumonia sensitivities pending, patient does not communicate does not provide any review of symptom, (3) Left ureteral calculus: Code(s): N20.1 - Calculus of ureter Status: Acute Assessment and Plan: Dr. Diallo has been consulted And has taken the patientto the OR. (4) Anxiety: Code(s): F41.9 - Anxiety disorder, unspecified Status: Chronic Assessment and Plan: we will need to resume his home medications of Ativan postop. If his blood pressure allows. (5) DM2 (diabetes mellitus, type 2): Code(s): E11.9 - Type 2 diabetes mellitus without complications Status: Chronic Assessment and Plan: Accu-Cheks AC and HS. Sliding scale insulin. Check A1c. (6) Hyperlipidemia: Code(s): E78.5 - Hyperlipidemia, unspecified Status: Chronic Assessment and Plan: Continue with home medications. (7) Immobility syndrome (paraplegic): Code(s): M62.3 - Immobility syndrome (paraplegic) Status: Chronic Assessment and Plan: Patient has had a back surgery in the past and is contracted to his lower extremities. According to the caregiver he is not able to sit up. (8) Tobacco abuse: Code(s): Z72.0 - Tobacco use Status: Chronic Assessment and Plan: We can offer him a nicotine patch if he is willing. (9) Acute renal failure: Code(s): N17.9 - Acute kidney failure, unspecified Status: Acute Assessment and Plan: could be related to his kidney stone. According to the caregiver he has had poor urinary output recently. Continue to hydrate the patient may consider renal ultrasound. May consider Nephrology consult if needed. Continue to hydrate the patient and recheck labs in the a.m.. His creatinine is 4.8 I am not sure what his baseline is. Subjective Date/time seen: 04/29/20 14:54 patient is a 40-year-old male bed-bound with paraplegia and chronic urinary retention he self caths himself he presented emergency department with a fever of 101, elevated white count of 28,[address] scan of abdomen which showed 12 mm stone in proximal left ureter with mild hydronephrosis patient was seen by urology and was taken to OR and had a cystoscopy with left retrograde pyelogram with left stent placement. patient urine culture is growing Klebsiella pneumonia sensitive to Rocephin will continue, patient blood cultures also growing Klebsiella pneumonia sensitivities pending, patient does not communicate does not provide any review of symptom, Review of Systems Review of Systems: ROS unobtainable: Yes unobtainable due to medical condition
[2020-04-29 18:10] LABS: Glucose Point of Care 228 (65-105)
[2020-04-29 23:04] LABS: Glucose Point of Care 254 (65-105)
[2020-04-30] VITALS: PULSE 47
[2020-04-30] MEDS: LACTATED RINGERS 1,000 ML 125 ML IV CONT ×2 (02:38→20:48)
[2020-04-30 04:00] VITALS: PULSE 39
[2020-04-30 06:00] VITALS: BP 135/67; PULSE 40; RESP 18; TEMP 37; O2SAT 97
[2020-04-30 06:30] LABS: Hematocrit 38.8 % (42.0-52.0); Hemoglobin 13.2 g/dL (14.0-18.0); Mean Corpuscular Hemoglobin 29.9 pg (26-34); Mean Corpuscular Volume 87.8 fl (80-100); Platelet Count Result 169 k/mm3 (150-375); Red Blood Count 4.42 M/mm3 (4.6-6.20); Red Cell Distribution Width 13.4 % (11.5-14.5); White Blood Count 11.5 K/mm3 (4.5-10.0)
[2020-04-30 06:41] LABS: Anion Gap 7 mmol/L (8-16); Blood Urea Nitrogen 28 mg/dL (9-20); Calcium 8.3 mg/dL (8.4-10.2); Carbon Dioxide 26 mmol/L (22-30); Chloride 105 mmol/L (98-107); Estimated CRCL calculation 84 ml/min; Estimated Glomerular Filt Rate > 60; Glucose 212 mg/dL (75-110); Potassium 3.6 mmol/L (3.4-5.0); Sodium 138 mmol/L (137-145)
[2020-04-30 08:00] VITALS: PULSE 39
[2020-04-30 08:56] LABS: Glucose Point of Care 192 (65-105)
[2020-04-30] MEDS: FENOFIBRATE 160 MG TABLET PO (09:12)
[2020-04-30] MEDS: MAGNESIUM OXIDE 400 MG TABLET PO (09:12)
[2020-04-30] MEDS: ATORVASTATIN 40 MG TABLET PO (09:12)
--- NOTE | 2020-04-30 11:56 | WPDUROPN2 ---
Progress Note: A&P Assessment and Plan (1) Septic shock: Code(s): A41.9 - Sepsis, unspecified organism; R65.21 - Severe sepsis with septic shock Status: Acute Assessment and Plan: Will plan to discharge home today on appropriate culture sensitive oral antibiotics. Will send the patient for a urine culture at [facility] in a week to ensure resolution of the infection. (2) Acute renal failure: Code(s): N17.9 - Acute kidney failure, unspecified Status: Acute Assessment and Plan: Resolved, his creatinine is now within normal limits. Remove woodson catheter. (3) Calculus of proximal left ureter: Code(s): N20.1 - Calculus of ureter Status: Acute Assessment and Plan: Dr. Diallo to discuss with family his options for treatment of his stone. His stone is not clearly visible on KUB therefore a Left ESWL is an option but may not be effective. D/t the patient's immobility and severe contracted state he may need to be treated at [place] for his stone. Subjective Subjective Date/Time Seen: 04/30/20 11:56 POD #3 Cystoscopy, left retrogade pyelogram, left stent placement. Patient is much better today and more communicable. Review of Systems Cardiovascular: Cardiovascular: Denies chest pain Respiratory: Respiratory: Reports no additional respiratory complaints Gastrointestinal: Gastrointestinal: Denies abdominal pain, Denies nausea and Denies vomiting Exam Resp: Effort & Inspection: normal respiratory effort Cardio: Rate: regular rate GI: GI Palp: Yes Soft to palpation and No Tenderness to palpation present (GI) : General: Yes no CVA tenderness Urinary Catheter: Urinary Catheter: patent and draining and urine clear Extrem: General: no edema Objective Data Vital Signs Vital Signs: Vital Signs - 24 hr 04/29/20 12:00 04/29/20 14:00 04/29/20 16:00 Temperature 98.0 F Pulse Rate 42 L 92 47 L Respiratory Rate 18 Blood Pressure 108/51 L Pulse Oximetry 97 04/29/20 20:00 04/30/20 00:00 04/30/20 04:00 Temperature Pulse Rate 47 L 47 L 39 L Respiratory Rate Blood Pressure Pulse Oximetry 04/30/20 06:00 Temperature 98.6 F Pulse Rate 40 L Respiratory Rate 18 Blood Pressure 135/67 Pulse Oximetry 97 Intake/Output Intake/Output: Intake & Output 04/27/20 04/28/20 04/29/20 04/30/20 23:59 23:59 23:59 23:59 Intake Total 4650 3935 3950 250 Output Total 665 2150 1900 400 Balance 3985 1785 0 -150 Meds/Results Medications: Active Medications Generic Name Dose Route Start Last Admin Trade Name Freq PRN Reason Stop Dose Admin Acetaminophen 1,000 mg 04/28/20 22:34 04/28/20 22:41 Tylenol Tablet PO 1,000 mg Q4H PRN Administration Fever Alprazolam 0.25 mg 04/29/20 13:48 Xanax PO TID PRN Anxiety Atorvastatin Calcium 40 mg 04/28/20 09:00 04/30/20 09:12 Lipitor PO 40 mg DAILY CHON Administration Dextrose 12.5 gm 04/27/20 13:56 Dextrose 50% Syringe IV PUSH PRN PRN Hypoglycemia Protocol Ergocalciferol 50,000 unit 04/28/20 21:00 04/28/20 22:24 Drisdol PO 50,000 unit We@2100 CHON Administration Fenofibrate 160 mg 04/28/20 09:00 04/30/20 09:12 Fenofibrate PO 05/28/20 09:01 160 mg DAILY CHON Administration Glucagon 1 mg 04/27/20 13:56 Glucagon For Inj IM PRN PRN Hypoglycemia Protocol Glucose 15 gm 04/27/20 13:56 Glutose 15 PO PRN PRN Hypoglycemia Protocol Hydromorphone HCl 1 mg 04/27/20 13:36 Dilaudid Inj IV PUSH Q5M PRN Pain Lactated Ringer's 1,000 mls @ 125 mls/hr 04/27/20 13:10 04/30/20 02:38 Lr - Lactated Ringers Iv IV CONT 125 mls/hr .Q8H CHON Administration Ceftriaxone Sodium/Dextrose 1 gm in 50 mls @ 100 mls/hr 04/28/20 12:00 04/29/20 14:28 Rocephin 1 Gm/D5w 50 Ml IVPB 100 mls/hr NOON CHON Administration Dextrose 1,000 mls @ 100 mls/hr 04/27/20 13
[2020-04-30 12:32] LABS: Glucose Point of Care 256 (65-105)
[2020-04-30] MEDS: INSULIN ASPART (*BKC) 100 UNITS/ML SUB-Q (13:24)
[2020-04-30 14:00] VITALS: BP 118/73; PULSE 44; RESP 18; TEMP 37.1; O2SAT 90
--- NOTE | 2020-04-30 14:16 | PM.DS ---
DS: Admitting Diagnosis Admitting Diagnosis Admitting Diagnosis: Sepsis,Actual renal failure,Proximal L Utereal sto DS: Summary Time Spent with Patient Time attestation: Pre Op Diagnosis: Left Proximal Ureteral Stone, UTI Post Operative Diagnosis: Left Proximal Ureteral Stone, UTI Patient underwent a cystoscopy, retrograde pyelogram, left ureteral stent placement on April 27, [address] Diallo. He tolerated the procedure well, was transfered to recovery in stable condition and to the ICU for further observation d/t sepsis. He has done well post operatively, creatinine and WBC has normalized. Patient will get a urine culture next week to ensure infection has resolved. Dr. Diallo to have discussion with luis's caregiver on plan to resolve proximal ureteral stone moving forward. He may potentially go to [place] to have the stone removed d/t severe contractures in his legs and hips or we could attempt a left ESWL but the stone is not well visualized on KUB therefore an ESWL may not be effective. Resume diabetic diet, activity as tolerated, resume previous home medications. Exam Resp: Effort & Inspection: normal respiratory effort Cardio: Rate: bradycardic GI: GI Palp: Yes Soft to palpation and No Tenderness to palpation present (GI) : General: Yes no CVA tenderness Urinary Catheter: Urinary Catheter: patent and draining and urine clear Extrem: General: no edema DS: Data Data Completed and Pending Labs on day of discharge: Labs from last 24 hours 04/30/20 04/30/20 04/30/20 12:29 08:13 06:09 WBC RBC Hgb Hct MCV MCH MCHC RDW Plt Count MPV Sodium 138 Potassium 3.6 Chloride 105 Carbon Dioxide 26 Anion Gap 7 L BUN 28 H Creatinine 1.30 Estim Creat Clear Calc 84 Estimated GFR > 60 Glucose 212 H POC Capillary Glucose 256 H 192 H Calcium 8.3 L 04/30/20 04/29/20 04/29/20 06:09 22:20 17:57 WBC 11.5 H RBC 4.42 L Hgb 13.2 L Hct 38.8 L MCV 87.8 MCH 29.9 MCHC 34.0 RDW 13.4 Plt Count 169 MPV 10.0 Sodium Potassium Chloride Carbon Dioxide Anion Gap BUN Creatinine Estim Creat Clear Calc Estimated GFR Glucose POC Capillary Glucose 254 H 228 H Calcium Preliminary micro results at discharge 04/27/20 10:39 Blood Culture - Preliminary Blood Klebsiella pnemoniae Discharge Plan Discharge Attending physician on discharge: Isiah Diallo Consulting providers: Lit Sebastian ; Isiah Diallo ; Ramírez Cintron Discharging Clinician: Evelina Dukes Anticipated Discharge Date/Time: 04/30/20 12:01 Patient Disposition: Home, Self-Care Activity: may shower Diet: diabetic Discharge Instructions: Get urine culture done next week to ensure infection is gone. Call office to discuss with Dr. Diallo regarding further care and potential surgical options on his proximal ureteral stone. Call office if he should develop a fever of >102, is unable to urinate or has severe worsening pain in the flank or go to the ER. Patient Instructions: Antibiotic Form Stand Alone Forms: General Discharge Information Follow-up/Referrals: Isiah Diallo MD [Physician] - Discharge Medications: New hydrocodone-acetaminophen 5-325 mg tablet 1 tablet PO Q6H PRN (Reason: pain) Qty: 20 RF: 0 sulfamethoxazole-trimethoprim [Bactrim DS] 800-160 mg tablet 1 tablet PO Q12H 7 Days Qty: 14 RF: 0 Continued atorvastatin 40 mg Tablet 40 mg PO DAILY RF: 0 ibuprofen 800 mg Tablet 800 mg PO TID RF: 0 fenofibrate micronized 200 mg Capsule 200 mg PO DAILY RF: 0 lorazepam 0.5 mg Tablet 0.5 mg PO TID PRN (Reason: Anxiety) RF: 0 tamsulosin 0.4 mg Capsule 0.4 mg PO HS RF: 0 omeprazole 20 mg Capsule,Delayed Release(Dr/Ec) 20 mg PO DAILY RF: 0 ergocalciferol (vitamin D2) [Vitamin D2] 1,250 m
--- NOTE | 2020-04-30 15:26 | PM.IMPN ---
Progress Note: A&P Assessment and Plan (1) Sepsis: Code(s): A41.9 - Sepsis, unspecified organism Status: Acute Assessment and Plan: blood cultures and urine cultures are pending. The patient was started on Rocephin in the emergency room. Patient was refusing to be straight cath in the emergency room. See UTI (2) UTI (urinary tract infection): Code(s): N39.0 - Urinary tract infection, site not specified Status: Acute Assessment and Plan: Suspect that is a UTI from his kidney stone. he has leukocytosis with his white count being 24.9 and lactic 2.3. Repeat lactic. CRP 36.5. Patient's heart rate was elevated his blood pressure was low. He meets criteria for sepsis. 04/30/20 15:26 patient is a 40-year-old male bed-bound with paraplegia and chronic urinary retention he self caths himself he presented emergency department with a fever of 101, elevated white count of 28,[address] scan of abdomen which showed 12 mm stone in proximal left ureter with mild hydronephrosis patient was seen by urology and was taken to OR and had a cystoscopy with left retrograde pyelogram with left stent placement. today 04/30 patient urine culture and blood culture growing Klebsiella pneumonia sensitive to Rocephin 10/03 since patient has sepsis most likely secondary UTI and bacteremia patient will require a minimum of 7 days of IV antibiotic, today patient does speak mostly profinity and does not communicate very, patient is clinically stable currently has no fever or chills will continue to monitor patient seen by Urology have signed off will follow-up as outpatient for removal of the ureteral stone. (3) Left ureteral calculus: Code(s): N20.1 - Calculus of ureter Status: Acute Assessment and Plan: Dr. Diallo has been consulted And has taken the patientto the OR. (4) Anxiety: Code(s): F41.9 - Anxiety disorder, unspecified Status: Chronic Assessment and Plan: we will need to resume his home medications of Ativan postop. If his blood pressure allows. (5) DM2 (diabetes mellitus, type 2): Code(s): E11.9 - Type 2 diabetes mellitus without complications Status: Chronic Assessment and Plan: Accu-Cheks AC and HS. Sliding scale insulin. Check A1c. (6) Hyperlipidemia: Code(s): E78.5 - Hyperlipidemia, unspecified Status: Chronic Assessment and Plan: Continue with home medications. (7) Immobility syndrome (paraplegic): Code(s): M62.3 - Immobility syndrome (paraplegic) Status: Chronic Assessment and Plan: Patient has had a back surgery in the past and is contracted to his lower extremities. According to the caregiver he is not able to sit up. (8) Tobacco abuse: Code(s): Z72.0 - Tobacco use Status: Chronic Assessment and Plan: We can offer him a nicotine patch if he is willing. (9) Acute renal failure: Code(s): N17.9 - Acute kidney failure, unspecified Status: Acute Assessment and Plan: could be related to his kidney stone. According to the caregiver he has had poor urinary output recently. Continue to hydrate the patient may consider renal ultrasound. May consider Nephrology consult if needed. Continue to hydrate the patient and recheck labs in the a.m.. His creatinine is 4.8 I am not sure what his baseline is. Subjective Date/time seen: 04/30/20 15:26 patient is a 40-year-old male bed-bound with paraplegia and chronic urinary retention he self caths himself he presented emergency department with a fever of 101, elevated white count of 28,[address] scan of abdomen which showed 12 mm stone in proximal left ureter with mild hydronephrosis patient was seen by urology and was taken to OR and had a cystoscopy with left retrograde pyelogram with left stent placement. today 04/30 patient urine culture and blood culture growing Klebsiella pneumonia sensi
[2020-04-30 17:56] LABS: Glucose Point of Care 181 (65-105)
[2020-04-30 21:56] VITALS: BP 141/56; PULSE 45; RESP 18; TEMP 36.9; O2SAT 93
[2020-04-30 21:59] LABS: Glucose Point of Care 221 (65-105)
[2020-05-01] MEDS: LACTATED RINGERS 1,000 ML 125 ML IV CONT (05:09)
[2020-05-01 06:00] VITALS: BP 141/53; PULSE 54; RESP 16; TEMP 36.2; O2SAT 92
--- NOTE | 2020-05-01 06:17 | PC.NURSE ---
Patient very unhappy this morning to be woken up for vital signs, medications, and to be checked/ cleaned. Patient yelled I'm fucking sleeping! at staff. We explained to him that he was soiled with stool and needed to be cleaned up, to which he replied I don't fucking care, I'm trying to sleep! Patient did not refused getting cleaned up and allowed staff to perform perineal care and change his bed pads with several more groans and complaints about needing to be left alone.
[2020-05-01 06:59] LABS: Hematocrit 39.9 % (42.0-52.0); Hemoglobin 13.3 g/dL (14.0-18.0); Mean Corpuscular HGB Conc 33.3 g/dl (32-36); Mean Corpuscular Hemoglobin 29.1 pg (26-34); Mean Corpuscular Volume 87.3 fl (80-100); Mean Platelet Volume 10.3 fl (7.4-10.4); Platelet Count Result 211 k/mm3 (150-375); Red Blood Count 4.57 M/mm3 (4.6-6.20); Red Cell Distribution Width 13.3 % (11.5-14.5); White Blood Count 11.8 K/mm3 (4.5-10.0)
[2020-05-01 07:14] LABS: Anion Gap 7 mmol/L (8-16); Blood Urea Nitrogen 26 mg/dL (9-20); Calcium 8.8 mg/dL (8.4-10.2); Carbon Dioxide 25 mmol/L (22-30); Chloride 106 mmol/L (98-107); Estimated CRCL calculation 98 ml/min; Estimated Glomerular Filt Rate > 60; Glucose 161 mg/dL (75-110); Potassium 3.5 mmol/L (3.4-5.0); Sodium 138 mmol/L (137-145)
[2020-05-01 08:10] LABS: Glucose Point of Care 151 (65-105)
[2020-05-01] MEDS: FENOFIBRATE 160 MG TABLET PO (08:56)
[2020-05-01] MEDS: MAGNESIUM OXIDE 400 MG TABLET PO (08:56)
[2020-05-01] MEDS: ATORVASTATIN 40 MG TABLET PO (08:56)
[2020-05-01] MEDS: POTASSIUM CHLORIDE 20 MEQ TABLET 40 MEQ PO (08:57)
[2020-05-01] MEDS: OXYBUTYNIN CHLORIDE 5 MG TABLET PO ×2 (10:51→19:35)
[2020-05-01 13:00] LABS: Glucose Point of Care 135 (65-105)
[2020-05-01 14:00] VITALS: BP 130/61; PULSE 40; RESP 20; TEMP 37.1; O2SAT 91
--- NOTE | 2020-05-01 14:17 | PM.DS ---
DS: Admitting Diagnosis Admitting Diagnosis Admitting Diagnosis: Sepsis,Actual renal failure,Proximal L Utereal sto DS: Discharge Diagnosis Discharge Diagnosis (1) Sepsis: Code(s): A41.9 - Sepsis, unspecified organism Status: Acute Assessment and Plan: blood cultures and urine cultures are pending. The patient was started on Rocephin in the emergency room. Patient was refusing to be straight cath in the emergency room. See UTI (2) UTI (urinary tract infection): Code(s): N39.0 - Urinary tract infection, site not specified Status: Acute Assessment and Plan: Suspect that is a UTI from his kidney stone. he has leukocytosis with his white count being 24.9 and lactic 2.3. Repeat lactic. CRP 36.5. Patient's heart rate was elevated his blood pressure was low. He meets criteria for sepsis. 04/30/20 15:26 patient is a 40-year-old male bed-bound with paraplegia and chronic urinary retention he self caths himself he presented emergency department with a fever of 101, elevated white count of 28,[address] scan of abdomen which showed 12 mm stone in proximal left ureter with mild hydronephrosis patient was seen by urology and was taken to OR and had a cystoscopy with left retrograde pyelogram with left stent placement. today 04/30 patient urine culture and blood culture growing Klebsiella pneumonia sensitive to Rocephin 10/03 since patient has sepsis most likely secondary UTI and bacteremia patient will require a minimum of 7 days of IV antibiotic, today patient does speak mostly profinity and does not communicate very, patient is clinically stable currently has no fever or chills will continue to monitor patient seen by Urology have signed off will follow-up as outpatient for removal of the ureteral stone. (3) Left ureteral calculus: Code(s): N20.1 - Calculus of ureter Status: Acute Assessment and Plan: Dr. Diallo has been consulted And has taken the patientto the OR. (4) Anxiety: Code(s): F41.9 - Anxiety disorder, unspecified Status: Chronic Assessment and Plan: we will need to resume his home medications of Ativan postop. If his blood pressure allows. (5) DM2 (diabetes mellitus, type 2): Code(s): E11.9 - Type 2 diabetes mellitus without complications Status: Chronic Assessment and Plan: Accu-Cheks AC and HS. Sliding scale insulin. Check A1c. (6) Hyperlipidemia: Code(s): E78.5 - Hyperlipidemia, unspecified Status: Chronic Assessment and Plan: Continue with home medications. (7) Immobility syndrome (paraplegic): Code(s): M62.3 - Immobility syndrome (paraplegic) Status: Chronic Assessment and Plan: Patient has had a back surgery in the past and is contracted to his lower extremities. According to the caregiver he is not able to sit up. (8) Tobacco abuse: Code(s): Z72.0 - Tobacco use Status: Chronic Assessment and Plan: We can offer him a nicotine patch if he is willing. (9) Acute renal failure: Code(s): N17.9 - Acute kidney failure, unspecified Status: Acute Assessment and Plan: could be related to his kidney stone. According to the caregiver he has had poor urinary output recently. Continue to hydrate the patient may consider renal ultrasound. May consider Nephrology consult if needed. Continue to hydrate the patient and recheck labs in the a.m.. His creatinine is 4.8 I am not sure what his baseline is. DS: Summary Hospital Course Reason for hospitalization: Chief complaint: Fever Narrative: Pramod Mckeon is a 40 year old male Who was brought to the emergency room via EMS. The patient thought that maybe he had a kidney stone in the past but was not really sure. He has caregiver Lexy was here in giving me the information. Lexy stated that they try to bring him in yesterday but he is not able to sit up appropriately and he was
--- NOTE | 2020-05-01 15:29 | PCPTNOTE ---
PT/OT orders received....patient refused to participate in therapy...caregiver presents and informs therapists that patient is at his baseline level of functional ability...he has caregivers at home 206 hrs /month...he is dependent ([employer]) for transfers...he does not ambulate...will d/c from therapy
--- NOTE | 2020-05-01 15:33 | PCOTNOTE ---
Attempted OT evaluation, but unable to complete as patient refused. Patient reported that he is going home today and will move when he gets there. Patient's caregiver present and reported that he is suppose to go home today and that he is essentially at baseline at this time. Patient's caregiver reported that he assistance assistance every day and night of the week. Patient's caregiver also reported that he requires assistance with self-care and that they [employer] him with all transfers. Patient's caregiver reports that he is essentially locked into extension at the hips and knees. No OT evaluation completed this date. Requested discharge orders.
[2020-05-01] MEDS: LIDOCAINE HCL 1% LOCAL INJ 2 ML AMPUL 5 ML INFILTRATE (16:36)
[2020-05-01 17:13] LABS: Glucose Point of Care 136 (65-105)
--- NOTE | 2020-05-01 17:50 | PC.NURSE ---
Caregiver Lexy was called and updated with a estimated time of discharged and all final questions were answered verbalized by October.
== END 2020-05-01 19:36 | disposition home or self-care (01) | DRG 853 ==
LOC: ANHED 13:06 → ANHSURGERY 13:19 → ANHICU 16:00 → ANH3MEDSUR 04-28 14:06
PROVIDERS: Nurse Practitioner; Urology; Admitting Provider Internal Medicine; Emergency Provider Emergency Medicine; PCP Nurse Practitioner Family; Visit Provider Family Medicine
PROC: BT1F1ZZ Fluoroscopy of Left Kidney, Ureter and Bladder using Low Osmolar Contrast (ICD-10-PCS; CPT 52352; principal; 2020-04-27 13:00)
DX: A41.9 Sepsis, unspecified organism (principal); R53.2 Functional quadriplegia; N17.9 Acute kidney failure, unspecified; N20.1 Calculus of ureter; N39.0 Urinary tract infection, site not specified; N13.30 Unspecified hydronephrosis; F41.9 Anxiety disorder, unspecified; E11.9 Type 2 diabetes mellitus without complications; N31.9 Neuromuscular dysfunction of bladder, unspecified; Z72.0 Tobacco use; B96.1 Klebsiella pneumoniae [K. pneumoniae] as the cause of diseases classified elsewhere
CPT/HCPCS: 36415; 36569; 71250; 74018; 74176; 74420; 76775; 80048; 80053; 81001; 83036; 83605; 83735; 84439; 84443; 84480; 85025; 85027; 85610; 85730; 86140; 87040; 87077; 87086; 87088; 87186; 93005; 96361; 96365; 96367; 99291; A9270; C1751; C1758; C1769; C2617; J0696; J1815; J2370; J2405; J2704; J3010; J3370; J3475; J7030; J7040; J7060; J7120; Q9966

== ENCOUNTER 2020-05-06 10:45 | Outpatient (RCR) | payer MEDICARE, MEDICAID, SELFPAY | END 2020-08-04 23:59 | disposition home or self-care (01) | LOC: ANHVASCINF 10:45 | PROVIDERS: PCP Nurse Practitioner Family; Visit Provider Family Medicine | DX: Z45.2 Encounter for adjustment and management of vascular access device (principal) | CPT/HCPCS: 99211; G0463 ==

== ENCOUNTER 2020-09-07 11:00 | Outpatient (RCR) | payer MEDICARE, SELFPAY ==
[2020-06-10 13:54] VITALS: BMI 33.0
[2020-06-10 13:57] VITALS: BMI 33.0
== END 2020-09-07 11:53 | disposition home or self-care (01) ==
LOC: ANHDMC 11:00
PROVIDERS: PCP Nurse Practitioner Family; Visit Provider Internal Medicine Endocrinology, Diabetes & Metabolism
DX: E11.9 Type 2 diabetes mellitus without complications (principal); Z71.3 Dietary counseling and surveillance; Z71.89 Other specified counseling
CPT/HCPCS: 97802; G0108